=== PATIENT | female | born 1975 | race Caucasian/White ===

== ENCOUNTER 2019-04-03 14:37 | Emergency (ER) | payer OTHER ==
[2019-04-03 14:52] VITALS: BP 136/79; PULSE 100; TEMP 98.6; BMI 38.9
--- NOTE | 2019-04-03 14:52 | PDOC ---
Rapid Medical Evaluation Chief Complaint: Headache Time Seen by Provider: 04/03/19 14:48 Medical Evaluation: Allergies Allergy/AdvReac Type Severity Reaction Status Date / Time No Known Allergies Allergy Verified 04/03/19 14:48 04/03/19 14:49 I have performed a brief in-person evaluation of this patient. The patient presents with a chief complaint of: h/o migraine present with complains of 2 weeks h/o AGUILAR which improves with Tylenol or advil but comes back again. Report intermittent nausea but no vomiting. Pt not taking any medications for migraine. Denies dizziness, blurry vision or change in vision Pertinent physical exam findings: A&O x 3 in NAD I have ordered the following: NOTHING The patient will proceed to the ED for further evaluation Discharge Disposition - Diagnosis Migraine headache with aura Qualifiers: Status migrainosus presence: without status migrainosus Intractability: not intractable Qualified Code(s): G43.109 - Migraine with aura, not intractable, without status migrainosus - Discharge Dispostion Condition at time of disposition: Stable - Referrals - Patient Instructions - Post Discharge Activity
[2019-04-03] MEDS ORDERED: METOCLOPRAMIDE HCL INJECTION 10 MG/2 ML VIAL IVPUSH ONE (15:47)
[2019-04-03] MEDS ORDERED: SODIUM CHLORIDE 0.9% 500 ML INFUS.BAG IV ONE (15:47)
[2019-04-03] MEDS ORDERED: KETOROLAC TROMETHAMINE 30 MG/1 ML VIAL IVPUSH ONE (15:47)
--- NOTE | 2019-04-03 15:47 | PDOC ---
History of Present Illness - General Chief Complaint: Headache Stated Complaint: HEADACHE Time Seen by Provider: 04/03/19 14:48 - History of Present Illness Initial Comments: 04/03/19 15:48 CHIEF COMPLAINT: headache HISTORY OF PRESENT ILLNESS: 43 yo F with hx of childhood migraines presents to [facility] with headache x 2 weeks. Patient describes headache as throbbing and to the back of her head. Patient reports that she has taken Tylenol and Advil but the headache returns after 1-2 hours when she takes those medications. She reports that she took "a medicine my friend gave me that she took for migraines, and that worked, but then a few days later the headache came back again. I don't know what the medicine is called." She denies any change in vision, gait, or speech. No recent travel or sick contacts. PAST MEDICAL HISTORY: Denies past medical history FAMILY HISTORY: Denies SOCIAL HISTORY: Denies tobacco, alcohol, illicit drug use. SURGICAL HISTORY: Denies ALLERGIES: No known drug allergies REVIEW OF SYSTEMS General/Constitutional: Denies fever or chills. Denies weakness, weight change. HEENT: Denies change in vision. Denies ear pain or discharge. Denies sore throat. Cardiovascular: Denies chest pain or shortness of breath. Respiratory: Denies cough, wheezing, or hemoptysis. Gastrointestinal: Denies nausea, vomiting, diarrhea or constipation. Denies rectal bleeding. Genitourinary: Denies dysuria, frequency, or change in urination. Musculoskeletal: Denies joint or muscle swelling or pain. Denies neck or back pain. Skin and breasts: Denies rash or easy bruising. Neurologic: Headache x 2 weeks. PHYSICAL EXAM General Appearance: Well-appearing, appropriately dressed. No apparent distress , no intoxication. HEENT: EOMI, PERRLA, normal ENT inspection, normal voice, TMs normal, pharynx normal. No conjunctival pallor. No photophobia, scleral icterus. Neck: Supple. Trachea midline. No tenderness, rigidity, carotid bruit, stridor , lymphadenopathy, or thyromegaly. Respiratory/Chest: Lungs CTAB. No shortness of breath, chest tenderness, respiratory distress, accessory muscle use. No crackles, rales, rhonchi, stridor , wheezing, dullness Cardiovascular: RRR. S1, S2. No JVD, murmur, bradycardia, tachycardia. Vascular Pulses: Dorsalis-Pedis (R): 2+, Dorsalis-Pedis (L): 2+ Gastrointestinal/Abdominal: Normal bowel sounds. Abdomen soft, non-distended. No tenderness or rebound tenderness. No organomegaly, pulsatile mass, guarding , hernia, hepatomegaly, splenomegaly. Lymphatic: No adenopathy, tenderness. Musculoskeletal/Extremities: Normal inspection. FROM of all extremities, normal capillary refill. Pelvis Stable. No CVA tenderness. No tenderness to extremities, pedal edema, swelling, erythema or deformity. Integumentary: Appropriate color, dry, warm. No cyanosis, erythema, jaundice or rash Neurologic: channel development director II-XII intact. Fully oriented, alert. Appropriate mood/affect. Motor strength 5/5. No appreciable EOM palsy, facial droop or sensory deficit. A&Ox3, follow commands, respond appropriately CN2-12: conjugate gaze, pupil round, equal and reactive to light. Visual field full to confrontation. EOMI without nystagmus, pursuit is smooth without saccade. Facial sensation and muscle activation intact bilaterally. Hearing intact bilaterally. Palate elevate symmetrically. Shoulder shrug and neck turn full strength. Tongue protrude midline. Motor: UE and LE strength 5/5 throughout bilaterally. Muscle tone and bulk normal. Sensory: pin prick & temp : BUE & BLE intact and equal bilaterally Vibration & propioception: intact bilaterally at 1st MCP and MTP joints. no sensory level noted on trunk Cerebellar: Rapid-alternating movement with regular rhythm without bradykinesia. [id number] and [id number] intact bilaterally without dysmetria or overshoot. Gait narrow based. No shuffling. Full hip flexion and knee flexion. Negative Romberg No involuntary movement noted. No pronator drift. No clonus. Past History - Past Medical History Allergies/Adverse Reactions: Allergies Allergy/AdvReac Type Severity Reaction Status Date / Time No Known Allergies Allergy Verified 04/03/19 14:48 Home Medications: Ambulatory Orders Multivitamin [Multiple Vitamins] 1 each PO DAILY 04/03/19 COPD: No - Suicide/Smoking/Psychosocial Hx Smoking Status: No Smoking History: Never smoked Number of Cigarettes Smoked Daily: 0 *Physical Exam - Vital Signs Last Vital Signs Temp Pulse Resp BP Pulse Ox 98.6 F 100 H 18 136/79 99 04/03/19 14:49 04/03/19 14:49 04/03/19 14:49 04/03/19 14:49 04/03/19 14:49 Medical Decision Making - Medical Decision Making 04/03/19 15:52 43 yo F with hx of childhood migraines presents to [facility] with headache x 2 weeks. -upreg -fluids, toradol, benadryl, reglan *DC/Admit/Observation/Transfer Diagnosis at time of Disposition: Migraine headache with aura Qualifiers: Status migrainosus presence: without status migrainosus Intractability: not intractable Qualified Code(s): G43.109 - Migraine with aura, not intractable, without status migrainosus - Discharge Dispostion Disposition: HOME Condition at time of disposition: Stable - Referrals Referrals: Meredith Tyson [Primary Care Provider] - Salo Morris MD [Staff Physician] - - Patient Instructions Printed Discharge Instructions: DI for Migraine Additional Instructions: Please follow up with neurology for further evaluation. If you develop any worsening headache, change in vision, weakness to one side, difficulty speaking or walking, or any new or concerning symptoms, please return to the ER. - Post Discharge Activity
[2019-04-03] MEDS ORDERED: KETOROLAC TROMETHAMINE 30 MG/1 ML VIAL ONE (16:23)
[2019-04-03] MEDS ORDERED: METOCLOPRAMIDE HCL INJECTION 10 MG/2 ML VIAL ONE (16:23)
== END 2019-04-03 17:29 | disposition home or self-care (01) ==
LOC: JERFT 14:37
PROC: 3E033GC Introduction of Other Therapeutic Substance into Peripheral Vein, Percutaneous Approach (ICD-10-PCS; principal; 2019-04-03)
PROC: 3E0333Z Introduction of Anti-inflammatory into Peripheral Vein, Percutaneous Approach (ICD-10-PCS; 2019-04-03)
DX: G43.109 Migraine with aura, not intractable, without status migrainosus (principal)
CPT/HCPCS: 84703; 99281-25

== ENCOUNTER 2025-06-22 15:22 | Emergency (ER) | payer OTHER ==
[2025-06-22 15:33] VITALS: BP 125/88; PULSE 81; RESP 20; TEMP 97.5; BMI 43.2
[2025-06-22 16:43] LABS: ABSOLUTE IMMATURE GRANULOCYTES 0.03 x10^3/uL (0.0-0.031); BASOPHILS # 0.02 x10^3/uL (0.01-0.08); EOSINOPHIL % 0.6 % (0.7-5.8); EOSINOPHILS # 0.05 x10^3/uL (0.04-0.36); MCHC 30.5 g/dl (32.2-35.5); MEAN CELL VOLUME 83.8 fl (79.4-94.8); MEAN PLT VOLUME 9.5 fl (9.4-12.3); MONOCYTE # 0.73 x10^3/uL (0.24-0.86); MONOCYTE % 8.1 % (4.7-12.5); RDW 14.1 % (12.2-17.1)
[2025-06-22 17:03] LABS: GLUCOSE,RANDOM 77.0 mg/dL (74-106)
[2025-06-22 17:04] LABS: TOT PROT 8.8 g/dl (6.4-8.2)
[2025-06-22 17:05] LABS: CO2 25.0 mmol/L (21-32)
[2025-06-22 17:06] LABS: ALK PHOS 152.0 U/L (40-150)
[2025-06-22 17:09] LABS: CREATININE 0.65 mg/dL (0.55-1.3); SGOT/AST 35.0 U/L (5-34); SGPT/ALT 19.0 U/L (0-55)
[2025-06-22 17:30] LABS: HIV INTERPRETATION NEGATIVE (NEGATIVE)
[2025-06-22 17:31] LABS: HCV DIAGNOSTIC IN-HOUSE W/RFLX NON-REACTIVE (NONREACTIVE)
== END 2025-06-22 17:39 | disposition home or self-care (01) ==
LOC: JER 15:22
DX: R51.9 Headache, unspecified (principal); R00.2 Palpitations; R53.1 Weakness
CPT/HCPCS: 36415; 80053; 85025; 86803; 87389; 93005; 93010; 99284-25